=== PATIENT | male | born 1970 ===

== ENCOUNTER 2022-01-22 10:59 | Outpatient (REF) | payer OTHER, SELFPAY ==
[2022-01-22 14:52] LABS: Basophils Percent Auto 0.4 % (0-2); Eosinophils Absolute Auto 0.1 X10*3/uL (0.0-0.4); Hematocrit 37.5 % (42.0-52.0); Hemoglobin 11.5 g/dl (14.0-18.0); Imm Gran Abs Auto 0.02 X10*3/uL (0.00-0.03); Imm Gran Pct Auto 0.2 % (0.0-0.4); Lymphocytes Absolute Auto 3.8 X10*3/uL (1.2-4.9); Lymphocytes Percent Auto 45.8 % (20-40); MANUAL DIFF FLAG NO; Mean Corpuscular HGB Conc 30.7 g/dl (31.0-36.0); Mean Corpuscular Hemoglobin 24.2 pg (27.0-33.0); Mean Corpuscular Volume 78.8 fL (80.0-98.0); Mean Platelet Volume 10.6 fL (9.4-12.4); Monocytes Absolute Auto 0.5 X10*3/uL (0.1-1.2); Monocytes Percent Auto 5.8 % (2-11); Neutrophils Absolute Auto 3.9 x10*3/uL (2.0-8.3); Neutrophils Percent Auto 46.8 % (45-73); Platelet Count 282 X10*3/uL (160-400); Red Blood Count 4.76 X10*6/uL (4.60-5.80); Red Cell Distribution Width 20.5 % (11.0-16.0); White Blood Count 8.4 X10*3/uL (4.8-10.8)
[2022-01-22 15:10] LABS: Estimated Average Glucose 226 mg/dL; Hemoglobin A1c % 9.5 %
[2022-01-22 15:18] LABS: Alanine Aminotransferase 14 U/L (0-40); Albumin Level 4.4 g/dL (3.5-5.0); Alkaline Phosphatase 92 U/L (39-117); Anion Gap 15 (12-20); Aspartate Amino Transferase 14 U/L (5-37); Bilirubin Total 0.2 mg/dL (0.0-1.0); Blood Urea Nitrogen 11 mg/dL (9-16); Carbon Dioxide 28 mmol/L (22-29); Chloride 102 mmol/L (96-108); Cholesterol 128 mg/dL; Estimated Glomerular Filt Rate > 60; Glucose Fasting 159 mg/dL (60-99); HDL Cholesterol 42 mg/dL; LDL Cholesterol Calculated 69 mg/dl; Potassium 4.9 mmol/L (3.3-5.1); Sodium 140 mmol/L (135-145); Total Protein 7.6 g/dL (6.5-8.0); Triglycerides 89 mg/dL
[2022-01-22 15:38] LABS: Thyroid Stimulating Hormone 0.81 uIU/mL (0.32-4.0)
== END 2022-01-22 11:00 | disposition home or self-care (01) ==
LOC: HO.WFDLDS 10:59
PROVIDERS: Visit Provider Nurse Practitioner Family
DX: Z00.00 Encounter for general adult medical examination without abnormal findings (principal); D64.9 Anemia, unspecified
CPT/HCPCS: 36415; 80053; 80061; 83036; 84443; 85025

== ENCOUNTER 2022-02-11 12:42 | Outpatient (REF) | payer OTHER, SELFPAY ==
[2022-02-11 14:03] LABS: Immature Retic Fraction 16.9 % (2.3-13.4); Retic HGB Equivalent 34.1 pg (30.0-35.0); Reticulocytes Absolute 0.048 X10*6/uL (0.026-0.095)
[2022-02-11 15:02] LABS: Ferritin 10 ng/mL (20-250); Iron 203 mcg/dL (45-160); Percent Iron Saturation 53 % (15-50); Total Iron Binding Capacity 386 mcg/dL (228-428); Unsaturated Iron Binding 183 ug/dL
== END 2022-02-11 12:43 | disposition home or self-care (01) ==
LOC: HO.WFDLDS 12:42
PROVIDERS: Visit Provider Nurse Practitioner Family
DX: D64.9 Anemia, unspecified (principal)
CPT/HCPCS: 36415; 82728; 83540; 85045

== ENCOUNTER 2022-05-10 11:29 | Outpatient (REF) | payer OTHER, SELFPAY ==
[2022-05-10 14:24] LABS: Hematocrit 42.5 % (42.0-52.0); Hemoglobin 13.6 g/dl (14.0-18.0); Mean Corpuscular Hemoglobin 28.8 pg (27.0-33.0); Mean Corpuscular Volume 89.9 fL (80.0-98.0); Mean Platelet Volume 11.6 fL (9.4-12.4); Platelet Count 230 X10*3/uL (160-400); Red Blood Count 4.73 X10*6/uL (4.60-5.80); Red Cell Distribution Width 15.1 % (11.0-16.0); White Blood Count 7.4 X10*3/uL (4.8-10.8)
[2022-05-10 14:33] LABS: Estimated Average Glucose 200 mg/dL; Hemoglobin A1c % 8.6 %
[2022-05-10 14:49] LABS: Alanine Aminotransferase 17 U/L (0-40); Alkaline Phosphatase 126 U/L (39-117); Anion Gap 15 (12-20); Aspartate Amino Transferase 13 U/L (5-37); Bilirubin Total 0.2 mg/dL (0.0-1.0); Blood Urea Nitrogen 18 mg/dL (9-16); Calcium 10.3 mg/dL (8.4-10.2); Carbon Dioxide 29 mmol/L (22-29); Chloride 100 mmol/L (96-108); Estimated Glomerular Filt Rate 56; Glucose Fasting 260 mg/dL (60-99); Iron 23 mcg/dL (45-160); Percent Iron Saturation 8 % (15-50); Potassium 4.7 mmol/L (3.3-5.1); Sodium 139 mmol/L (135-145); Total Iron Binding Capacity 280 mcg/dL (228-428); Total Protein 8.1 g/dL (6.5-8.0); Unsaturated Iron Binding 257 ug/dL
[2022-05-10 15:11] LABS: Ferritin 109 ng/mL (20-250)
== END 2022-05-10 11:30 | disposition home or self-care (01) ==
LOC: HO.WFDLDS 11:29
PROVIDERS: Visit Provider Nurse Practitioner Family
DX: D64.9 Anemia, unspecified (principal); E11.9 Type 2 diabetes mellitus without complications
CPT/HCPCS: 36415; 80053; 82728; 83036; 83540; 85027

== ENCOUNTER → 2023-05-16 16:53 | Outpatient (AMB) | payer OTHER, SELFPAY ==
--- NOTE | 2023-05-16 17:00 | MHC.PC.OV ---
Vital Signs 05/16/23 17:01 Height 6 ft 4 in Weight 261 lb BMI 31.8 BP 132/78 Blood Pressure Location Lt brachial Position Sitting Pulse 86 Pulse Source Pulse Oximeter Pulse Oximetry (%) 96 Oxygen Delivery Method Room Air Intake Visit Reasons: follow up Intake Note: Patient is here for follow up on diabetes and high blood pressure. Patient is requesting iron prescription, states he is feeling the difference without it. Allergies No Known Allergies Allergy (Verified 05/16/23 17:33) Medication List - Last Reconciled 05/16/23 by Luz Hammond CNP ferrous sulfate 325 mg PO DAILY 30 days ketoconazole 2% 1 appl topical BID lisinopril 20 mg PO DAILY 30 days metformin 1,000 mg PO BID 30 days metoprolol tartrate 25 mg PO BID 30 days Tobacco use date assessed: 05/16/23 Dental Screening Dental Screen Date: 05/16/23 Did you have a dental visit in the last 12 months?: Yes Did you have a dental problem in the last 6 months where you did not have access to dental care?: No Was dental information given to patient?: Yes HPI HPI Comments History of Present Illness Details 52-year-old patient presents for HTN and DM follow-up Recent A1c in May 2022 is 8.6% His last office visit was in July 2022 He notes that he has been taking Metformin 1000mg in the morning instead of prescribed 1000mg twice daily. He admits to taking Lisinopril and Metoprolol as prescribed. He has not taken Ferrous sulfate for the past several months He admits to consuming significant amount of carbs, including rice and bread. He denies formal exercise No acute symptoms at this time He notes that does not recall the last time he had diabetic eye exam [facility] Medical History Anemia Hypertension DM type 2 (diabetes mellitus, type 2) Surgical History No pertinent past surgical history Family History Mother Diabetes Hypertension Hyperlipidemia No family history of mental disorder Father Diabetes Hypertension Hyperlipidemia No family history of mental disorder Social History Housing: Apartment Patient Tobacco Use Status: Current everyday Tobacco user Tobacco use type: Cigarette Cigarettes Per Day: 5 e-Cigarette/Vaping Use: Never Used Current occupational status: employed and unemployed Cognitive needs: No Hearing needs: No Vision needs: No Questionnaire PHQ-9 Over the last 2 weeks, how often have you been bothered by any of the following problems? 1. Little interest or pleasure in doing things: not at all 2. Feeling down, depressed, or hopeless: not at all 3. Trouble falling or staying asleep, or sleeping too much: not at all 4. Feeling tired or having little energy: not at all 5. Poor appetite or overeating: not at all 6. Feeling bad about yourself - or that you are a failure or have let yourself or your family down: not at all 7. Trouble concentrating on things, such as reading the newspaper or watching television: not at all 8. Moving or speaking so slowly that other people could have noticed. Or the opposite - being so fidgety or restless that you have been moving around a lot more than usual: not at all 9. Thoughts that you would be better off or of hurting yourself in some way: not at all Total score: 0 Depression Screening Interpretation: Negative Depression Screening Done: Yes Source: Developed by Drs. Abner Delgado, Sunita Thompson, Alan Biggs and colleagues, with an educational aurelia from [employer]. Thrive Questionnaire Date Thrive assessed: 05/16/23 I am a: Patient What is your living situation today?: I have a steady place to live Within the past 12 months, did the food you bought not last and you didn't have the money to get more?: Never true Within the past 12 months, did you worry whether your food would run out before you got money to buy more?: Never true Do you have trouble paying for medicines?: No Do you have trouble getting transportation to medical appointments?: No Do you have trouble paying your heating and electricity bill?: No Do you have trouble taking care of your child, family member or friend?: No Do you have trouble with day-to-day activities such as bathing, preparing meals, shopping, managing finances, etc.?: No Are you currently unemployed and looking for a job?: No Are you interested in more education?: No THRIVE Score: 0 AUDIT C Alcohol Use Questionnaire (AUDIT-C) 1. How often do you have a drink containing alcohol?: Never 3. How often do you have six or more drinks on one occasion?: Never Total Score: 0 AMBIKA-7 AMB Questionnaire AMBIKA-7 Date AMBIKA - 7 assessed: 05/16/23 Feeling nervous, anxious, or on edge: 1 = Several days Not being able to stop or control worryin = Several days Worrying too much about different things: 1 = Several days Trouble relaxin = Not at all Being so restless that it is hard to sit still: 0 = Not at all Becoming easily annoyed or irritable: 0 = Not at all Feeling afraid as if something awful might happen: 0 = Not at all Total AMBIKA-7 score (0-4 normal; 5-9 mild; 10-14 moderate; 15-21 severe): 3 Source: Developed by Drs. Abner Delgado, Sunita Thompson, Alan Biggs and colleagues, with an educational aurelia from [employer]. Review of Systems Const Details: Const Denies chills, Denies fatigue, Denies fever(s), Denies headache(s) and Denies weakness ENT Denies dizziness and Denies headache(s) Card Denies chest pain, Denies lightheadedness, Denies dyspnea and Denies other (Palpitations) Resp Denies cough, Denies dyspnea, Denies wheezing and Denies other ( shortness of breath) GI Denies abdominal pain, Denies melena, Denies hematochezia, Denies change in bowel habits, Denies dyspepsia and Denies nausea Denies hematuria and Denies dysuria Musc Denies abnormal gait, Denies myalgias, Denies arthralgias, Denies numbness and Denies tingling Skin/Breast Denies rash, Denies unusual bruising and Denies wounds Neuro Denies abnormal gait, Denies dizziness, Denies headache(s), Denies memory loss, Denies numbness, Denies Sensory deficit (Neuro), Denies tingling and Denies weakness Psych Denies anxiety, Denies depression, Denies memory loss Endo Denies cold intolerance, Denies fatigue, Denies heat intolerance, Denies polydipsia and Denies polyuria Aller/Immun Denies wheezing Physical exam (Primary Care) BMI result Body Mass Index 31.8 Tobacco/Smoking Status: Tobacco use Status Tobacco use date assessed 05/16/23 05/16/23 17:05 Patient Tobacco Use Status Current everyday Tobacco 05/16/23 17:01 Tobacco use type Cigarette 05/16/23 17:01 e-Cigarette/Vaping Use Never Used 05/16/23 17:01 Depression Screening Interpretation: Negative Thrive Assessment: Date of Thrive Assessment Date Thrive assessed 05/14/22 05/16/23 17:01 Const Other: General: no acute distress and well developed Nutritional Appearance: well nourished Orientation/consciousness: patient oriented x3 HENMT Head: Yes normocephalic and Yes atraumatic Eyes General: appearance normal, both eyes and all related structures Pupils: Equal, round and reactive pupils present EOM: EOMs intact bilaterally Resp Effort & Inspection: normal respiratory effort Auscultation: clear to auscultation bilaterally Cardio Rate: regular rate Rhythm: regular rhythm Heart sounds: S1 normal heart sound present, S2 normal heart sound present, no gallops, no murmurs and no rubs GI Palpation (GI): No Abdominal aortic bruit present, Soft to palpation, nontender, No hepatosplenomegaly present and No Rebound tenderness present Auscultation: normal bowel sounds General: Yes no CVA tenderness Back/Spine/Pelvis Back: no CVA tenderness Cervical Spine: cervical ROM normal and No Cervical spine tenderness Thoracic/Lumbar Spine: thoraco-lumbar ROM normal, No pain with thoraco-lumbar ROM, No thoracic spinal tenderness and No lumbar spinal tenderness Extrem General: Yes normal to inspection, No edema and No calf tenderness Skin General: warm and dry. Normal skin color. Normal skin turgor Lesions: no lesions Rashes: no rashes Trauma: no lacerations or abrasions Wounds: no wounds Nails: normal Neuro General: patient oriented x3, gait normal and no focal neuro deficit Cranial nerves: Yes Equal, round and reactive pupils present Cognition (Neuro): normal cognition Gait exam (Neuro): Normal gait present Sensory Exam: No Sensory deficit (Neuro) Psych Appearance: grossly normal Affect: normal affect Attitude: cooperative Thought process: Normal thought process present Results AMB Hemoglobin A1c AMB Hemoglobin A1c 13.4 % Last Edit by Gauri Martin CMA on 05/16/23 17:26 Assessment and Plan Assessment & Plan (1) Hypertension: Code(s): I10 - Essential (primary) hypertension Plan: Blood pressure is 132/78, slightly above goal of less than 130/80 Continue to take lisinopril as prescribed Low-sodium diet and routine exercise encouraged Will continue to monitor Follow-up in 1 month for an extended physical exam and diabetes Return sooner with symptoms or concerns Verbalized understanding and agreed with treatment plan (2) DM type 2 (diabetes mellitus, type 2): Code(s): E11.9 - Type 2 diabetes mellitus without complications Plan: His A1c today is 13.4%, above goal of less than 7.0%. Previous A1c was 8.6% Advised to take metformin 1000 mg twice daily ADA diet and routine exercise encouraged. Advised to limit carbs such as rice, pasta, bread, potatoes Referred to endocrinology, Ophthalmology, and the diabetic nurse educator Diabetic supplies ordered. Advised to check blood glucose 3 times daily, record readings, and bring to next appointment Advised to get labs done before his next visit Follow-up in 1 month or return sooner with symptoms or concerns Verbalized understanding and agreed with treatment plan Orders: Orders Microalbumin, Random (w Creat) Today E11.9 - Type 2 diabetes mellitus without complications AMB Hemoglobin A1c Today Z13.9 - Encounter for screening, unspecified Referrals Endocrinology Referral E11.9 - Type 2 diabetes mellitus without complications Nurse Navigator Referral E11.9 - Type 2 diabetes mellitus without complications Ophthalmology Referral E11.9 - Type 2 diabetes mellitus without complications Medications: New blood sugar diagnostic (FreeStyle Lite Strips) As directed TID 100 ea 4RF blood-glucose meter (FreeStyle Lite Meter kit) As directed 1 ea 0RF diabetes lancets (FreeStyle Lancets) As directed 100 ea 4RF Refilled ferrous sulfate 325 mg PO DAILY 30 days 30 tabs 2RF Coding Level of Care Code Est Pt Level 4 (91480) Diagnoses Hypertension I10 DM type 2 (diabetes mellitus, type 2) E11.9
[2023-05-16 17:01] VITALS: BP 132/78; PULSE 86; O2SAT 96; BMI 31.8
== END ==
PROVIDERS: PCP Nurse Practitioner Family; Visit Provider Nurse Practitioner Family
DX: I10 Essential (primary) hypertension (principal); E11.9 Type 2 diabetes mellitus without complications
CPT/HCPCS: 83036; 99214

== ENCOUNTER 2023-05-18 09:09 | Outpatient (REF) | payer OTHER, SELFPAY ==
[2023-05-18 11:44] LABS: Hematocrit 45.3 % (42.0-52.0); Hemoglobin 15.3 g/dl (14.0-18.0); Mean Corpuscular HGB Conc 33.8 g/dl (31.0-36.0); Mean Corpuscular Hemoglobin 31.9 pg (27.0-33.0); Mean Corpuscular Volume 94.4 fL (80.0-98.0); Mean Platelet Volume 10.9 fL (9.4-12.4); Platelet Count 226 X10*3/uL (160-400); Red Cell Distribution Width 12.9 % (11.0-16.0); White Blood Count 8.8 X10*3/uL (4.8-10.8)
[2023-05-18 12:30] LABS: Creatinine Urine 162.82 mg/dL; Microalbum/Creatinine Ratio Ur 6.1 ug/mg cr (<30)
[2023-05-18 12:45] LABS: Ferritin 84 ng/mL (20-250); Iron 83 mcg/dL (45-160); Percent Iron Saturation 28 % (15-50); Total Iron Binding Capacity 298 mcg/dL (228-428); Unsaturated Iron Binding 215 ug/dL
== END 2023-05-18 09:10 | disposition home or self-care (01) ==
LOC: HO.WFDLDS 09:09
PROVIDERS: Visit Provider Nurse Practitioner Family
DX: D50.9 Iron deficiency anemia, unspecified (principal); E11.9 Type 2 diabetes mellitus without complications
CPT/HCPCS: 36415; 82043; 82570; 82728; 83540; 85027

== ENCOUNTER 2023-06-13 15:59 | Outpatient (AMB) | payer OTHER, SELFPAY ==
[2023-06-13 16:01] VITALS: BP 146/86; PULSE 81; RESP 13; TEMP 36.1; O2SAT 97; BMI 31.1
--- NOTE | 2023-06-13 16:01 | MHC.PC.OV ---
Vital Signs 06/13/23 16:01 06/13/23 16:23 Height 6 ft 4 in Weight 255 lb 4 oz BMI 31.1 BP 146/86 H 140/80 H Blood Pressure Location Rt brachial Lt brachial Position Sitting Sitting Respiration 13 Pulse 81 Pulse Source Pulse Oximeter Temp 97 F Temp Source Temporal Artery Scan Pulse Oximetry (%) 97 Oxygen Delivery Method Room Air Intake Visit Reasons: CPE W/ F/U DM Associate Professor Of Literacy Required: No Accompanied by: Self / Same As Patient Allergies No Known Allergies Allergy (Verified 06/13/23 16:20) Medication List - Last Reconciled 06/13/23 by Luz Hammond CNP blood sugar diagnostic (FreeStyle Lite Strips) As directed TID blood-glucose meter (FreeStyle Lite Meter kit) As directed ferrous sulfate 325 mg PO DAILY 30 days ketoconazole 2% 1 appl topical BID lancets (FreeStyle Lancets) As directed lisinopril 20 mg PO DAILY 30 days metformin 1,000 mg PO BID 30 days metoprolol tartrate 25 mg PO BID 30 days Tobacco use date assessed: 05/16/23 Dental Screening Dental Screen Date: 06/13/23 Did you have a dental visit in the last 12 months?: Yes Did you have a dental problem in the last 6 months where you did not have access to dental care?: No Was dental information given to patient?: Patient has dentist HPI HPI Comments History of Present Illness Details 52-year-old male presents for an extended physical exam and diabetes follow-up His A1c was elevated at his previous visit last month almost a month ago, 13.4 He admits to taking his medications as prescribed without adverse reactions He notes that he has been making healthy dietary changes by avoiding high sugar content foods and carbs. He has not been exercising He offers no complaints and denies acute symptoms at this time He notes that he has never had a colonoscopy done He notes that he has not been vaccinated for shingles or the flu. He states, I don't take flu shots He smokes 10 cigarettes daily. He has been smoking for 10 years [facility] Medical History Anemia Hypertension DM type 2 (diabetes mellitus, type 2) Surgical History No pertinent past surgical history Family History (Updated 06/13/23 @ 16:08 by Katelyn Carrasco MA) Mother Diabetes Hypertension Hyperlipidemia No family history of mental disorder Father Diabetes Hypertension Hyperlipidemia No family history of mental disorder Social History Housing: House Patient Tobacco Use Status: Current everyday Tobacco user Tobacco use type: Cigarette Cigarette Packs Per Day: 0.5 Cigarettes Per Day: 10 Years Smoked: 10 e-Cigarette/Vaping Use: Never Used Current occupational status: employed 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 1. Little interest or pleasure in doing things: not at all 2. Feeling down, depressed, or hopeless: not at all 3. Trouble falling or staying asleep, or sleeping too much: several days 4. Feeling tired or having little energy: not at all 5. Poor appetite or overeating: not at all 6. Feeling bad about yourself - or that you are a failure or have let yourself or your family down: not at all 7. Trouble concentrating on things, such as reading the newspaper or watching television: not at all 8. Moving or speaking so slowly that other people could have noticed. Or the opposite - being so fidgety or restless that you have been moving around a lot more than usual: not at all 9. Thoughts that you would be better off or of hurting yourself in some way: not at all Total score: 1 Depression Screening Interpretation: Negative Depression Screening Done: Yes 30278 - PHQ-9 Billing: Yes Source: Developed by Drs. Abner Delgado, Sunita Thompson, Alan Biggs and colleagues, with an educational aurelia from [employer]. Thrive Questionnaire Date Thrive assessed: 05/16/23 AUDIT C Alcohol Use Questionnaire (AUDIT-C) 1. How often do you have a drink containing alcohol?: Never 3. How often do you have six or more drinks on one occasion?: Never Total Score: 0 AMBIKA-7 AMB Questionnaire AMBIKA-7 Date AMBIKA - 7 assessed: 06/13/23 Feeling nervous, anxious, or on edge: 1 = Several days Not being able to stop or control worryin = Several days Worrying too much about different things: 1 = Several days Trouble relaxin = Not at all Being so restless that it is hard to sit still: 0 = Not at all Becoming easily annoyed or irritable: 0 = Not at all Feeling afraid as if something awful might happen: 0 = Not at all Total AMBIKA-7 score (0-4 normal; 5-9 mild; 10-14 moderate; 15-21 severe): 3 Source: Developed by Drs. Abner Delgado, Sunita Thompson, Alan Biggs and colleagues, with an educational aurelia from [employer]. Review of Systems Const Details: Denies chills, Denies fatigue, Denies fever(s), Denies headache(s) and Denies weakness HEENT Denies change in vision, Denies dizziness, Denies headache(s), Denies hearing loss, Denies nasal congestion, Denies sinus pain, Denies sinus pressure and Denies sore throat Card Denies chest pain, Denies lightheadedness, Denies dyspnea and Denies other (palpitations) Resp Denies cough, Denies dyspnea and Denies wheezing GI Denies abdominal pain, Denies melena, Denies hematochezia, Denies change in bowel habits, Denies dyspepsia and Denies nausea Denies hematuria and Denies dysuria Musc Denies abnormal gait, Denies myalgias, Denies arthralgias, Denies numbness and Denies tingling Skin/Breast Denies rash, Denies unusual bruising and Denies wounds Neuro Denies abnormal gait, Denies dizziness, Denies headache(s), Denies memory loss, Denies numbness, Denies Sensory deficit (Neuro), Denies tingling and Denies weakness Psych Denies anxiety, Denies depression and Denies memory loss Endo Denies cold intolerance, Denies fatigue, Denies heat intolerance, Denies polydipsia and Denies polyuria Bennie/Lymph Denies easy bleeding and Denies easy bruising Aller/Immun Denies wheezing Physical exam (Primary Care) Vital Signs: Last Vital Signs Temp 97 F 06/13/23 16:01 Pulse 81 06/13/23 16:01 Resp 13 06/13/23 16:01 BP 146/86 H 06/13/23 16:01 Pulse Ox 97 06/13/23 16:01 Oxygen Delivery Method Room Air 06/13/23 16:01 BMI result Body Mass Index 31.1 Tobacco/Smoking Status: Tobacco use Status Tobacco use date assessed 05/16/23 06/13/23 16:05 Patient Tobacco Use Status Current everyday Tobacco 06/13/23 16:05 Tobacco use type Cigarette 06/13/23 16:05 e-Cigarette/Vaping Use Never Used 06/13/23 16:05 PHQ-9: PHQ-9 Score PHQ-9: Total score 1 06/13/23 16:11 Depression Screening Interpretation: Negative Thrive Assessment: Date of Thrive Assessment Date Thrive assessed 05/16/23 06/13/23 16:05 Const Other: General: no acute distress, well developed, alert and awake Nutritional Appearance: well nourished Orientation/consciousness: patient oriented x3 HENMT Head: Yes normocephalic and Yes atraumatic Ears: hearing grossly normal bilaterally and TM's normal bilaterally General nose exam: Normal external nose present and Normal nares present Mouth: Normal oral and palatal mucosa present and moist mucous membranes Teeth and gingiva: dentition normal Throat: Yes oropharynx normal Eyes Pupils: Equal, round and reactive pupils present and Pupil accommodation reflex normal EOM: EOMs intact bilaterally Neck Neck: Yes normal visual inspection, Yes no lymphadenopathy and Yes trachea midline Thyroid: Thyroid normal Carotids: no bruits Lymphatic: no lymphadenopathy noted Chest Chest palpation & inspection: normal inspection of the chest Resp Effort & Inspection: normal respiratory effort Auscultation: clear to auscultation bilaterally Cardio Rate: regular rate Rhythm: regular rhythm Heart sounds: S1 normal heart sound present, S2 normal heart sound present, no gallops, no murmurs and no rubs Bruits: no abdominal aortic bruits and no carotid bruits GI Palpation (GI): No Abdominal aortic bruit present, Soft to palpation, nontender, No hepatosplenomegaly present and No Rebound tenderness present Auscultation: normal bowel sounds General: Yes no CVA tenderness Back/Spine/Pelvis Back: no CVA tenderness Cervical Spine: cervical ROM normal and No Cervical spine tenderness Thoracic/Lumbar Spine: thoraco-lumbar ROM normal, No pain with thoraco-lumbar ROM, No thoracic spinal tenderness and No lumbar spinal tenderness Skin General: warm and dry. Normal skin color. Normal skin turgor Lesions: no lesions Rashes: no rashes Trauma: no lacerations or abrasions Wounds: no wounds Nails: normal Neuro General: patient oriented x3, gait normal and CN's II-XI intact bilaterally Cranial nerves: Yes Equal, round and reactive pupils present Cognition (Neuro): normal cognition Gait exam (Neuro): Normal gait present Motor exam (neuro): 5/5 motor strength present throughout Sensory Exam: No Sensory deficit (Neuro) Deep tendon reflexes (DTR's): Right patellar reflex intensity grade: 2+ and Left patellar reflex intensity grade: 2+ Extrem General: Yes normal to inspection, No edema and No calf tenderness Psych Appearance: grossly normal Affect: normal affect Attitude: cooperative Thought process: Normal thought process present Assessment and Plan Assessment & Plan (1) Normal physical examination, routine: Code(s): Z00.00 - Encounter for general adult medical examination without abnormal findings Plan: No significant physical restrictions or limitations noted Continue current treatment regimen Healthy diet and routine exercise encouraged Will recheck CBC for iron deficiency anemia. Will check BMP for kidney function. Will recheck lipid panel. Will also check PSA levels Follow-up in 2 months or return sooner with symptoms or concerns Verbalized understanding and agreed with treatment plan (2) Colon cancer screening: Code(s): Z12.11 - Encounter for screening for malignant neoplasm of colon Plan: He has never had a colonoscopy Referred to [facility] [place] [place] gastroenterology for colonoscopy (3) Vaccine counseling: Code(s): Z71.85 - Encounter for immunization safety counseling Plan: He has never been vaccinated for shingles. He declines the influenza vaccine Instructed on importance of vaccination and encouraged to get vaccinated for shingles and influenza (4) Smoking: Code(s): F17.200 - Nicotine dependence, unspecified, uncomplicated Plan: He smokes 10 cigarettes daily. He has been smoking for 10 years Instructed on health risks and complications of cigarette smoking Smoking cessation encouraged He may inform his PCP if he needs treatment for smoking cessation (5) Laboratory tests ordered as part of a complete physical exam (CPE): Code(s): Z00.00 - Encounter for general adult medical examination without abnormal findings Plan: Fasting labs ordered in preparation of a complete physical exam. Advised to fast for at least 10 hours before getting labs drawn. May drink water Verbalized understanding and agreed with treatment plan. Orders: Orders TSH reflex Free T4 Today Z00.00 - Encounter for general adult medical examination without abnormal findings Lipid Panel Today Z00.00 - Encounter for general adult medical examination without abnormal findings PSA, Ultra Sensitive Today Z00.00 - Encounter for general adult medical examination without abnormal findings Basic Metabolic Panel Today Z00.00 - Encounter for general adult medical examination without abnormal findings Complete Blood Count no Diff Today D50.9 - Iron deficiency anemia, unspecified, Z00.00 - Encounter for general adult medical examination without abnormal findings Medications: Refilled lisinopril 20 mg PO DAILY 30 days 30 tabs 3RF metoprolol tartrate 25 mg PO BID 30 days 60 tabs 3RF Coding Level of Care Code Est Pt Prev Care 40-64y(96994) Diagnoses Normal physical examination, routine Z00.00 Colon cancer screening Z12.11 Vaccine counseling Z71.85 Smoking F17.200 Laboratory tests ordered as part of a complete physical exam (CPE) Z00.00
[2023-06-13 16:23] VITALS: BP 140/80
== END 2023-06-13 16:37 | disposition home or self-care (01) ==
PROVIDERS: PCP Nurse Practitioner Family; Visit Provider Nurse Practitioner Family
DX: Z00.00 Encounter for general adult medical examination without abnormal findings (principal); Z12.11 Encounter for screening for malignant neoplasm of colon; Z71.85 Encounter for immunization safety counseling; F17.200 Nicotine dependence, unspecified, uncomplicated
CPT/HCPCS: 99396

== ENCOUNTER 2023-08-03 11:05 | Outpatient (REF) | payer OTHER, SELFPAY ==
[2023-08-03 14:40] LABS: Hematocrit 45.1 % (42.0-52.0); Hemoglobin 15.3 g/dl (14.0-18.0); Mean Corpuscular HGB Conc 33.9 g/dl (31.0-36.0); Mean Corpuscular Hemoglobin 32.6 pg (27.0-33.0); Mean Corpuscular Volume 96.2 fL (80.0-98.0); Mean Platelet Volume 10.6 fL (9.4-12.4); Platelet Count 258 X10*3/uL (160-400); Red Blood Count 4.69 X10*6/uL (4.60-5.80); Red Cell Distribution Width 13.6 % (11.0-16.0); White Blood Count 9.8 X10*3/uL (4.8-10.8)
[2023-08-03 15:20] LABS: Anion Gap 14 (12-20); Blood Urea Nitrogen 16 mg/dL (9-16); Calcium 9.9 mg/dL (8.4-10.2); Carbon Dioxide 25 mmol/L (22-29); Chloride 106 mmol/L (96-108); Estimated Glomerular Filt Rate > 60; Glucose Random 156 mg/dL (60-115); Sodium 141 mmol/L (135-145)
[2023-08-03 15:51] LABS: TSH reflex Free T4 0.58 uIU/mL (0.32-4.0)
[2023-08-09 22:13] LABS: PSA, Ultra Sensitive 1.39 ng/mL
== END 2023-08-03 11:06 | disposition home or self-care (01) ==
LOC: HO.WFDLDS 11:05
PROVIDERS: Visit Provider Nurse Practitioner Family
DX: Z00.00 Encounter for general adult medical examination without abnormal findings (principal); D50.9 Iron deficiency anemia, unspecified
CPT/HCPCS: 36415; 80048; 84153; 84443; 85027

== ENCOUNTER 2023-08-15 15:55 | Outpatient (AMB) | payer OTHER, SELFPAY ==
--- NOTE | 2023-08-15 15:58 | MHC.PC.OV ---
Vital Signs 08/15/23 15:59 Height 6 ft 4 in Weight 245 lb BMI 29.8 BP 116/74 Blood Pressure Location Rt brachial Position Sitting Respiration 14 Pulse 93 Pulse Source Pulse Oximeter Temp 98.4 F Temp Source Oral Pulse Oximetry (%) 96 Oxygen Delivery Method Room Air Intake Visit Reasons: DM, HTN Intake Note: Patient is here to follow up on DM, HTN. Sports Marketing Coordinator Required: No Regional Vice President Surgical Sales: Not Required per policy Accompanied by: Self / Same As Patient Allergies No Known Allergies Allergy (Verified 08/15/23 16:11) Medication List - Last Reviewed 08/15/23 by Dalila Kinney CMA blood sugar diagnostic (FreeStyle Lite Strips) As directed TID blood-glucose meter (FreeStyle Lite Meter kit) As directed empagliflozin (Jardiance) 10 mg PO DAILY lancets (FreeStyle Lancets) As directed lisinopril 20 mg PO DAILY 30 days metformin 1,000 mg PO BID 30 days metoprolol tartrate 25 mg PO BID 30 days Tobacco use date assessed: 08/15/23 Dental Screening Dental Screen Date: 06/13/23 HPI HPI Comments History of Present Illness Details 52-year-old male presents for hypertension and diabetes follow-up He admits to taking his medications as prescribed without adverse reactions He notes that he established with [place] [facility] a few weeks ago and was prescribed Jardiance 10 mg daily. He has a follow-up appointment in a couple of weeks He offers no complaints and denies acute symptoms at this time He notes that he was contacted by [facility] for an eye exam. However, he was not feeling well and did not go to the appointment. He has not been contacted again. [facility] Medical History Anemia Hypertension DM type 2 (diabetes mellitus, type 2) Surgical History No pertinent past surgical history Family History Mother Diabetes Hypertension Hyperlipidemia No family history of mental disorder Father Diabetes Hypertension Hyperlipidemia No family history of mental disorder Social History Housing: House Patient Tobacco Use Status: Current everyday Tobacco user Tobacco use type: Cigarette Cigarette Packs Per Day: 0.5 Cigarettes Per Day: 10 Years Smoked: 10 e-Cigarette/Vaping Use: Never Used Second Hand Smoke Exposure: Yes service: No Current occupational status: employed 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 Abner Delgado, Sunita Thompson, Alan Biggs and colleagues, with an educational aurelia from [employer] Review of Systems Const Details: Const Denies chills, Denies fatigue, Denies fever(s), Denies headache(s) and Denies weakness ENT Denies dizziness and Denies headache(s) Card Denies chest pain, Denies lightheadedness, Denies dyspnea and Denies other (Palpitations) Resp Denies cough, Denies dyspnea, Denies wheezing and Denies other ( shortness of breath) GI Denies abdominal pain, Denies melena, Denies hematochezia, Denies change in bowel habits, Denies dyspepsia and Denies nausea Denies hematuria and Denies dysuria Musc Denies abnormal gait, Denies myalgias, Denies arthralgias, Denies numbness and Denies tingling Skin/Breast Denies rash, Denies unusual bruising and Denies wounds Neuro Denies abnormal gait, Denies dizziness, Denies headache(s), Denies memory loss, Denies numbness, Denies Sensory deficit (Neuro), Denies tingling and Denies weakness Psych Denies anxiety, Denies depression, Denies memory loss Endo Denies cold intolerance, Denies fatigue, Denies heat intolerance, Denies polydipsia and Denies polyuria Aller/Immun Denies wheezing Physical exam (Primary Care) Vital Signs: Last Vital Signs Temp 98.4 F 08/15/23 15:59 Pulse 93 08/15/23 15:59 Resp 14 08/15/23 15:59 BP 116/74 08/15/23 15:59 Pulse Ox 96 08/15/23 15:59 Oxygen Delivery Method Room Air 08/15/23 15:59 BMI result Body Mass Index 29.8 Tobacco/Smoking Status: Tobacco use Status Tobacco use date assessed 08/15/23 08/15/23 16:02 Patient Tobacco Use Status Current everyday Tobacco 08/15/23 16:02 Tobacco use type Cigarette 08/15/23 16:02 e-Cigarette/Vaping Use Never Used 08/15/23 16:02 Thrive Assessment: Date of Thrive Assessment Date Thrive assessed 05/16/23 08/15/23 16:02 Const Other: General: no acute distress and well developed Nutritional Appearance: well nourished Orientation/consciousness: patient oriented x3 HENMT Head: Yes normocephalic and Yes atraumatic Eyes General: appearance normal, both eyes and all related structures Pupils: Equal, round and reactive pupils present EOM: EOMs intact bilaterally Resp Effort & Inspection: normal respiratory effort Auscultation: clear to auscultation bilaterally Cardio Rate: regular rate Rhythm: regular rhythm Heart sounds: S1 normal heart sound present, S2 normal heart sound present, no gallops, no murmurs and no rubs GI Palpation (GI): No Abdominal aortic bruit present, Soft to palpation, nontender, No hepatosplenomegaly present and No Rebound tenderness present Auscultation: normal bowel sounds General: Yes no CVA tenderness Back/Spine/Pelvis Back: no CVA tenderness Cervical Spine: cervical ROM normal and No Cervical spine tenderness Thoracic/Lumbar Spine: thoraco-lumbar ROM normal, No pain with thoraco-lumbar ROM, No thoracic spinal tenderness and No lumbar spinal tenderness Extrem General: Yes normal to inspection, No edema and No calf tenderness Skin General: warm and dry. Normal skin color. Normal skin turgor Neuro General: patient oriented x3, gait normal and no focal neuro deficit Cranial nerves: Yes Equal, round and reactive pupils present Cognition (Neuro): normal cognition Gait exam (Neuro): Normal gait present Sensory Exam: No Sensory deficit (Neuro) Psych Appearance: grossly normal Affect: normal affect Attitude: cooperative Thought process: Normal thought process present Results AMB Hemoglobin A1c AMB Hemoglobin A1c 7.1 % Last Edit by Dalila Kinney CMA on 08/15/23 16:13 Results Reviewed Results Reviewed: Laboratory Last Values Hgb A1c (Clinic) 7.1 % (4.0-6.0) H 08/15/23 15:58 Assessment and Plan Assessment & Plan (1) Hypertension: Code(s): I10 - Essential (primary) hypertension Plan: Blood pressure is 116/74, within goal of less than 130/80 Continue current treatment regimen Low-sodium diet encouraged Follow-up in 3 months or return sooner with symptoms or concerns Verbalized understanding and agreed with treatment plan (2) DM type 2 (diabetes mellitus, type 2): Code(s): E11.9 - Type 2 diabetes mellitus without complications Plan: His A1c today is 7.1%, slightly above goal of less than 7.0%. Previous A1 was 13.4% Continue to take Jardiance and metformin 1000 mg twice daily ADA diet and routine exercise encouraged Will request endocrinology record Advised to contact [facility] to establish care He has not had lipid panel blood work done since 2021. Advised to fast for 10-12 hours, may drink water only, and get blood work done before his next visit Follow-up in 3 months Verbalized understanding and agreed with treatment plan (3) Iron deficiency anemia: Code(s): D50.9 - Iron deficiency anemia, unspecified Plan: H&H have been trending normal; recent iron profile and ferritin level is normal Will discontinue ferrous sulfate at this time Will recheck CBC, iron profile and ferritin levels in 3 months Verbalized understanding and agreed with the plan Orders: Orders AMB Hemoglobin A1c Today E11.9 - Type 2 diabetes mellitus without complications IRON PROFILE 3 Months D50.9 - Iron deficiency anemia, unspecified Complete Blood Count no Diff 3 Months D50.9 - Iron deficiency anemia, unspecified Ferritin 3 Months D50.9 - Iron deficiency anemia, unspecified Medications: Discontinued ferrous sulfate Discontinued Reason: Doctor's Order 325 mg PO DAILY 30 days 30 tabs 2RF Coding Level of Care Code Est Pt Level 4 (69219) Complex EM visit Add On G2211 Diagnoses Hypertension I10 DM type 2 (diabetes mellitus, type 2) E11.9 Iron deficiency anemia D50.9
[2023-08-15 15:59] VITALS: BP 116/74; PULSE 93; RESP 14; TEMP 36.9; O2SAT 96; BMI 29.8
== END 2023-08-15 16:32 | disposition home or self-care (01) ==
PROVIDERS: PCP Nurse Practitioner Family; Visit Provider Nurse Practitioner Family
DX: I10 Essential (primary) hypertension (principal); E11.9 Type 2 diabetes mellitus without complications; D50.9 Iron deficiency anemia, unspecified
CPT/HCPCS: 83036; 99214; G2211

== ENCOUNTER 2024-02-25 07:17 | Outpatient (REF) | payer OTHER, SELFPAY ==
[2024-02-25 07:49] LABS: Hematocrit 47.3 % (42.0-52.0); Mean Corpuscular HGB Conc 33.8 g/dl (31.0-36.0); Mean Corpuscular Hemoglobin 31.3 pg (27.0-33.0); Mean Corpuscular Volume 92.6 fL (80.0-98.0); Mean Platelet Volume 10.4 fL (9.4-12.4); Platelet Count 216 X10*3/uL (160-400); Red Blood Count 5.11 X10*6/uL (4.60-5.80); Red Cell Distribution Width 13.6 % (11.0-16.0); White Blood Count 6.5 X10*3/uL (4.8-10.8)
[2024-02-25 08:36] LABS: Cholesterol 142 mg/dL (<200); HDL Cholesterol 41 mg/dL (>40); Iron 92 mcg/dL (45-160); LDL Cholesterol Calculated 84 mg/dL (<100); Percent Iron Saturation 32 % (15-50); Total Iron Binding Capacity 290 mcg/dL (228-428); Triglycerides 88 mg/dL (<150); Unsaturated Iron Binding 198 ug/dL
[2024-02-25 09:05] LABS: Ferritin 92 ng/mL (20-250)
== END 2024-02-25 07:18 | disposition home or self-care (01) ==
LOC: HO.LAB 07:17
PROVIDERS: PCP Nurse Practitioner Family; Visit Provider Nurse Practitioner Family
DX: Z00.00 Encounter for general adult medical examination without abnormal findings (principal); D50.9 Iron deficiency anemia, unspecified
CPT/HCPCS: 36415; 80061; 82728; 83540; 85027

== ENCOUNTER 2024-02-27 14:48 | Outpatient (AMB) | payer OTHER, SELFPAY ==
--- NOTE | 2024-02-27 15:07 | MHC.PC.OV ---
Vital Signs 02/27/24 15:13 Height 6 ft 4 in Weight 242 lb 8 oz BMI 29.5 BP 126/78 Blood Pressure Location Rt brachial Position Sitting Respiration 16 Pulse 80 Pulse Source Pulse Oximeter Temp 97.5 F Temp Source Temporal Artery Scan Pulse Oximetry (%) 97 Oxygen Delivery Method Room Air Intake Visit Reasons: 3 mos DM, HTN Intake Note: patient here for 3 month follow up on DM and HTN Athletic Shoe Designer Required: No Allergies No Known Allergies Allergy (Verified 02/27/24 15:11) Tobacco use date assessed: 02/27/24 Dental Screening Dental Screen Date: 02/27/24 Did you have a dental visit in the last 12 months?: No Did you have a dental problem in the last 6 months where you did not have access to dental care?: No Was dental information given to patient?: Yes HPI HPI Comments History of Present Illness Details The patient is a 53-year-old male presenting with a follow-up for Type 2 Diabetes Mellitus and Essential Hypertension. He has been previously diagnosed with Type 2 Diabetes Mellitus and managed with Jardiance 10 mg daily and metformin 1000 mg twice daily. Despite adherence to this regimen, his Hemoglobin A1c has remained at 7.1%, consistent with readings from August, indicating no change in glycemic control. The patient reports difficulty in adhering to dietary modifications, specifically reducing carbohydrate intake such as rice, pasta, and bread. He exercises three times per week, largely through walking, due to work constraints. 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 The patient?s Essential Hypertension is managed with lisinopril 20 mg daily and metoprolol 25 mg twice daily. His blood pressure was recorded today at 126/78 mmHg, which falls within the target range of less than 130/80 mmHg. No complications have been mentioned in relation to his hypertension. He has a history of iron deficiency anemia, with past treatment through iron supplementation. Recent blood tests indicate no current anemia, with normal iron profile and ferritin levels. Results - Labs: Hemoglobin A1c 7.1%, Iron studies and CBC within normal limits, LDL 84 mg/dl, Triglycerides and total cholesterol not specified but reported as within normal limits [facility] Medical History Anemia Hypertension DM type 2 (diabetes mellitus, type 2) Surgical History No pertinent past surgical history Family History Mother Diabetes Hypertension Hyperlipidemia No family history of mental disorder Father Diabetes Hypertension Hyperlipidemia No family history of mental disorder Social History Housing: House Patient Tobacco Use Status: Current everyday Tobacco user Tobacco use type: Cigarette Cigarette Packs Per Day: 0.5 Cigarettes Per Day: 10 Years Smoked: 10 e-Cigarette/Vaping Use: Never Used Second Hand Smoke Exposure: Yes service: No Current occupational status: employed 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 Cognitive needs: No Hearing needs: No Vision needs: Yes Questionnaire Thrive Questionnaire Date Thrive assessed: 05/16/23 I am a: Patient What is your living situation today?: I choose not to answer this question Within the past 12 months, did the food you bought not last and you didn't have the money to get more?: I choose not to answer this question Within the past 12 months, did you worry whether your food would run out before you got money to buy more?: I choose not to answer this question Do you have trouble paying for medicines?: No Do you have trouble getting transportation to medical appointments?: No Do you have trouble paying your heating and electricity bill?: No Do you have trouble taking care of your child, family member or friend?: No Do you have trouble with day-to-day activities such as bathing, preparing meals, shopping, managing finances, etc.?: No Are you currently unemployed and looking for a job?: Yes Are you interested in more education?: No Please select the resources that you would like help with: Food Currently or been in a relationship where the following occur: I choose not to answer THRIVE Score: 0 AUDIT C Alcohol Use Questionnaire (AUDIT-C) 1. How often do you have a drink containing alcohol?: Never Total Score: 0 AMBIKA-7 AMB Questionnaire AMBIKA-7 Date AMBIKA - 7 assessed: 06/13/23 Feeling nervous, anxious, or on edge: 0 = Not at all Not being able to stop or control worryin = Not at all Worrying too much about different things: 0 = Not at all Trouble relaxin = Not at all Being so restless that it is hard to sit still: 0 = Not at all Becoming easily annoyed or irritable: 0 = Not at all Feeling afraid as if something awful might happen: 0 = Not at all Total AMBIKA-7 score (0-4 normal; 5-9 mild; 10-14 moderate; 15-21 severe): 0 Source: Developed by Drs. Abner Delgado, Sunita Thompson, Alan Biggs and colleagues, with an educational aurelia from [employer]. Review of Systems Const Details: Const Denies chills, Denies fatigue, Denies fever(s), Denies headache(s) and Denies weakness ENT Denies dizziness and Denies headache(s) Card Denies chest pain, Denies lightheadedness, Denies dyspnea and Denies other (Palpitations) Resp Denies cough, Denies dyspnea, Denies wheezing and Denies other ( shortness of breath) GI Denies abdominal pain, Denies melena, Denies hematochezia, Denies change in bowel habits, Denies dyspepsia and Denies nausea Denies hematuria and Denies dysuria Musc Denies abnormal gait, Denies myalgias, Denies arthralgias, Denies numbness and Denies tingling Skin/Breast Denies rash, Denies unusual bruising and Denies wounds Neuro Denies abnormal gait, Denies dizziness, Denies headache(s), Denies memory loss, Denies numbness, Denies Sensory deficit (Neuro), Denies tingling and Denies weakness Psych Denies anxiety, Denies depression, Denies memory loss Endo Denies cold intolerance, Denies fatigue, Denies heat intolerance, Denies polydipsia and Denies polyuria Aller/Immun Denies wheezing Physical exam (Primary Care) Vital Signs: Last Vital Signs Temp 97.5 F 02/27/24 15:13 Pulse 80 02/27/24 15:13 Resp 16 02/27/24 15:13 BP 126/78 02/27/24 15:13 Pulse Ox 97 02/27/24 15:13 Oxygen Delivery Method Room Air 02/27/24 15:13 BMI result Body Mass Index 29.5 Tobacco/Smoking Status: Tobacco use Status Tobacco use date assessed 02/27/24 02/27/24 15:14 Patient Tobacco Use Status Current everyday Tobacco 02/27/24 15:07 Tobacco use type Cigarette 02/27/24 15:07 e-Cigarette/Vaping Use Never Used 02/27/24 15:07 Thrive Assessment: Date of Thrive Assessment Date Thrive assessed 05/16/23 02/27/24 15:07 Currently or been in a relationship where the following occur: I choose not to answer Const Other: General: no acute distress and well developed Nutritional Appearance: well nourished Orientation/consciousness: patient oriented x3 [facility] Head: Yes normocephalic and Yes atraumatic Eyes General: appearance normal, both eyes and all related structures Pupils: Equal, round and reactive pupils present EOM: EOMs intact bilaterally Resp Effort & Inspection: normal respiratory effort Auscultation: clear to auscultation bilaterally Cardio Rate: regular rate Rhythm: regular rhythm Heart sounds: S1 normal heart sound present, S2 normal heart sound present, no gallops, no murmurs and no rubs GI Palpation (GI): No Abdominal aortic bruit present, Soft to palpation, nontender, No hepatosplenomegaly present and No Rebound tenderness present Auscultation: normal bowel sounds General: Yes no CVA tenderness Back/Spine/Pelvis Back: no CVA tenderness Extrem General: Yes normal to inspection, No edema and No calf tenderness Skin General: warm and dry. Normal skin color. Normal skin turgor Neuro General: patient oriented x3, gait normal and no focal neuro deficit Cranial nerves: Yes Equal, round and reactive pupils present Cognition (Neuro): normal cognition Gait exam (Neuro): Normal gait present Sensory Exam: No Sensory deficit (Neuro) Psych Appearance: grossly normal Affect: normal affect Attitude: cooperative Thought process: Normal thought process present Coding Level of Care Code Est Pt Level 3 (73921) Diagnoses Hypertension I10 DM type 2 (diabetes mellitus, type 2) E11.9 Iron deficiency anemia D50.9 Assessment & Plan Assessment & Plan (1) Hypertension: Code(s): I10 - Essential (primary) hypertension Category: Medical Plan: Continue current medications, lisinopril 20 mg daily and metoprolol 25 mg twice daily. Monitor blood pressure regularly to ensure it remains under 130/80 mmHg. (2) DM type 2 (diabetes mellitus, type 2): Code(s): E11.9 - Type 2 diabetes mellitus without complications Category: Medical Plan: Continue with Jardiance 10 mg daily and metformin 1000 mg twice daily. Encourage dietary modifications focusing on reducing carbohydrate intake and increasing exercise frequency if feasible. (3) Iron deficiency anemia: Code(s): D50.9 - Iron deficiency anemia, unspecified Category: Medical Plan: Continue to monitor iron levels with periodic lab work and ensure iron intake through diet. Plan I discussed with the patient the current stable state of his hypertension and the need for continuous monitoring to maintain blood pressure within targeted parameters. For his Type 2 Diabetes Mellitus, I recommended maintaining the current medication regimen while emphasizing dietary changes to achieve a Hemoglobin A1c under 7.0%. The potential of adding Trulicity was mentioned due to persistent A1c numbers; however, the patient opted to focus on dietary improvements instead. We talked about the importance of lowering carbohydrate intake and increasing exercise frequency as potential lifestyle modifications to better manage his blood glucose levels. Follow-up has been scheduled for three months to evaluate the effectiveness of these interventions and reassess his condition. Orders: Orders AMB Hemoglobin A1c Today Z13.9 - Encounter for screening, unspecified Patient Instructions: - Continue taking jardiance 10 mg daily and metformin 1000 mg twice daily. - Maintain lisinopril and metoprolol regimens as prescribed for blood pressure control. - Adhere to dietary recommendations, specifically reduce intake of carbohydrates like rice, pasta, and bread. - Aim to exercise more frequently to aid in diabetes management. - Schedule a follow-up appointment in three months or sooner if any changes in health status occur. Patient was informed and verbally consented to the use of an ambient scribe for clinic note documentation during this visit.
[2024-02-27 15:13] VITALS: BP 126/78; PULSE 80; RESP 16; TEMP 36.4; O2SAT 97; BMI 29.5
== END 2024-02-27 15:44 | disposition home or self-care (01) ==
PROVIDERS: PCP Nurse Practitioner Family; Visit Provider Nurse Practitioner Family
DX: I10 Essential (primary) hypertension (principal); E11.9 Type 2 diabetes mellitus without complications; D50.9 Iron deficiency anemia, unspecified; Z13.9 Encounter for screening, unspecified

== ENCOUNTER → 2024-02-27 14:48 | Outpatient (BNVA) | payer OTHER, SELFPAY | PROVIDERS: PCP Nurse Practitioner Family; Visit Provider Nurse Practitioner Family | DX: E11.9 Type 2 diabetes mellitus without complications (principal); I10 Essential (primary) hypertension; D50.9 Iron deficiency anemia, unspecified | CPT/HCPCS: 83036; 99212 ==

== ENCOUNTER 2024-05-30 14:52 | Outpatient (AMB) | payer OTHER, SELFPAY ==
--- NOTE | 2024-05-30 14:56 | A.OFFPC_ITS ---
Vital Signs 05/30/24 15:01 05/30/24 15:34 Height 6 ft 4 in Weight 242 lb 4 oz BMI 29.5 BP 134/74 120/70 Blood Pressure Location Rt brachial Lt brachial Position Sitting Sitting Respiration 16 Pulse 77 Pulse Source Pulse Oximeter Temp 97.7 F Temp Source Oral Pulse Oximetry (%) 98 Oxygen Delivery Method Room Air Intake Visit Reasons: 3 mos DM, HTN Intake Note: patient here for follow up on DM and HTN [employer] Required: No Allergies No Known Allergies Allergy (Verified 05/30/24 15:25) Medication List - Last Reconciled 05/30/24 by Luz Hammond CNP blood sugar diagnostic (FreeStyle Lite Strips) As directed TID blood-glucose meter (FreeStyle Lite Meter kit) As directed empagliflozin (Jardiance) 10 mg PO DAILY 30 days lancets (FreeStyle Lancets) As directed lisinopril 20 mg PO DAILY 30 days metformin 1,000 mg PO BID 30 days metoprolol tartrate 25 mg PO BID 30 days Tobacco use date assessed: 05/30/24 Dental Screening Dental Screen Date: 05/30/24 Did you have a dental visit in the last 12 months?: No Did you have a dental problem in the last 6 months where you did not have access to dental care?: No Was dental information given to patient?: Yes HPI HPI Comments History of Present Illness Details 53-year-old male presents for hypertensi on and diabetes follow-up. He admits to taking his medications as prescribed without adverse reactions. He admits to making healthy dietary choices and exercising routinely. He offers no complaints and denies acute symptoms at this time. [facility] Medical History Anemia Hypertension DM type 2 (diabetes mellitus, type 2) Surgical History No pertinent past surgical history Family History Mother Diabetes Hypertension Hyperlipidemia No family history of mental disorder Father Diabetes Hypertension Hyperlipidemia No family history of mental disorder Social History Housing: House Patient Tobacco Use Status: Current everyday Tobacco user Tobacco use type: Cigarette Cigarette Packs Per Day: 0.5 Cigarettes Per Day: 10 Years Smoked: 10 e-Cigarette/Vaping Use: Never Used Second Hand Smoke Exposure: Yes service: No Current occupational status: employed 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 1. Little interest or pleasure in doing things: not at all 2. Feeling down, depressed, or hopeless: not at all 3. Trouble falling or staying asleep, or sleeping too much: not at all 4. Feeling tired or having little energy: several days 5. Poor appetite or overeating: not at all 6. Feeling bad about yourself - or that you are a failure or have let yourself or your family down: not at all 7. Trouble concentrating on things, such as reading the newspaper or watching television: not at all 8. Moving or speaking so slowly that other people could have noticed. Or the opposite - being so fidgety or restless that you have been moving around a lot more than usual: not at all 9. Thoughts that you would be better off or of hurting yourself in some way: not at all Total score: 1 Depression Screening Interpretation: Negative Depression Screening Done: Yes Source: Developed by Drs. Abner Delgado, Sunita Thompson, Alan Biggs and colleagues, with an educational aurelia from [employer]. Thrive Questionnaire Date Thrive assessed: 05/30/24 I am a: Patient What is your living situation today?: I choose not to answer this question Within the past 12 months, did the food you bought not last and you didn't have the money to get more?: I choose not to answer this question Within the past 12 months, did you worry whether your food would run out before you got money to buy more?: I choose not to answer this question Do you have trouble paying for medicines?: No Do you have trouble getting transportation to medical appointments?: No Do you have trouble paying your heating and electricity bill?: No Do you have trouble taking care of your child, family member or friend?: No Do you have trouble with day-to-day activities such as bathing, preparing meals, shopping, managing finances, etc.?: No Are you currently unemployed and looking for a job?: No Are you interested in more education?: No Please select the resources that you would like help with: None Currently or been in a relationship where the following occur: I choose not to answer THRIVE Score: 0 AUDIT C Alcohol Use Questionnaire (AUDIT-C) 1. How often do you have a drink containing alcohol?: Never Total Score: 0 AMIBKA-7 AMB Questionnaire AMBIKA-7 Date AMBIKA - 7 assessed: 05/30/24 Feeling nervous, anxious, or on edge: 0 = Not at all Not being able to stop or control worryin = Not at all Worrying too much about different things: 0 = Not at all Trouble relaxin = Not at all Being so restless that it is hard to sit still: 0 = Not at all Becoming easily annoyed or irritable: 0 = Not at all Feeling afraid as if something awful might happen: 0 = Not at all Total AMBIKA-7 score (0-4 normal; 5-9 mild; 10-14 moderate; 15-21 severe): 0 Source: Developed by Drs. Abner Delgado, Sunita Thompson, Alan Biggs and colleagues, with an educational aurelia from [employer]. AMBIKA-7 Assessment Billing AMBIKA-7 Assessment Tool: AMBIKA-7 Assessment 42537 Review of Systems Const Details: Const Denies chills, Denies fatigue, Denies fever(s), Denies headache(s) and Denies weakness ENT Denies dizziness and Denies headache(s) Card Denies chest pain, Denies lightheadedness, Denies dyspnea and Denies other (Palpitations) Resp Denies cough, Denies dyspnea, Denies wheezing and Denies other ( shortness of breath) GI Denies abdominal pain, Denies melena, Denies hematochezia, Denies change in bowel habits, Denies dyspepsia and Denies nausea Denies hematuria and Denies dysuria Musc Denies abnormal gait, Denies myalgias, Denies arthralgias, Denies numbness and Denies tingling Skin/Breast Denies rash, Denies unusual bruising and Denies wounds Neuro Denies abnormal gait, Denies dizziness, Denies headache(s), Denies memory loss, Denies numbness, Denies Sensory deficit (Neuro), Denies tingling and Denies weakness Psych Denies anxiety, Denies depression, Denies memory loss Endo Denies cold intolerance, Denies fatigue, Denies heat intolerance, Denies polydipsia and Denies polyuria Aller/Immun Denies wheezing Physical exam (Primary Care) Vital Signs: Last Vital Signs Temp 97.7 F 05/30/24 15:01 Pulse 77 05/30/24 15:01 Resp 16 05/30/24 15:01 BP 134/74 05/30/24 15:01 Pulse Ox 98 05/30/24 15:01 Oxygen Delivery Method Room Air 05/30/24 15:01 BMI result Body Mass Index 29.5 Tobacco/Smoking Status: Tobacco use Status Tobacco use date assessed 05/30/24 05/30/24 15:01 Patient Tobacco Use Status Current everyday Tobacco 05/30/24 14:59 Tobacco use type Cigarette 05/30/24 14:59 e-Cigarette/Vaping Use Never Used 05/30/24 14:59 PHQ-9: PHQ-9 Score PHQ-9: Total score 1 05/30/24 14:59 Depression Screening Interpretation: Negative Thrive Assessment: Date of Thrive Assessment Date Thrive assessed 05/30/24 05/30/24 14:59 Currently or been in a relationship where the following occur: I choose not to answer Const Other: General: no acute distress and well developed Nutritional Appearance: well nourished Orientation/consciousness: patient oriented x3 HENMT Head: Yes normocephalic and Yes atraumatic Eyes General: appearance normal, both eyes and all related structures Pupils: Equal, round and reactive pupils present EOM: EOMs intact bilaterally Resp Effort & Inspection: normal respiratory effort Auscultation: clear to auscultation bilaterally Cardio Rate: regular rate Rhythm: regular rhythm Heart sounds: S1 normal heart sound present, S2 normal heart sound present, no gallops, no murmurs and no rubs GI Palpation (GI): No Abdominal aortic bruit present, Soft to palpation, nontender, No hepatosplenomegaly present and No Rebound tenderness present Auscultation: normal bowel sounds General: Yes no CVA tenderness Back/Spine/Pelvis Back: no CVA tenderness Cervical Spine: cervical ROM normal and No Cervical spine tenderness Thoracic/Lumbar Spine: thoraco-lumbar ROM normal, No pain with thoraco-lumbar ROM, No thoracic spinal tenderness and No lumbar spinal tenderness Extrem General: Yes normal to inspection, No edema and No calf tenderness Skin General: warm and dry. Normal skin color. Normal skin turgor Neuro General: patient oriented x3, gait normal and no focal neuro deficit Cranial nerves: Yes Equal, round and reactive pupils present Cognition (Neuro): normal cognition Gait exam (Neuro): Normal gait present Sensory Exam: No Sensory deficit (Neuro) Psych Appearance: grossly normal Affect: normal affect Attitude: cooperative Thought process: Normal thought process present Results AMB Hemoglobin A1c AMB Hemoglobin A1c 6.4 % Last Edit by Charisma Ratliff on 05/30/24 16:03 Coding Level of Care Code Est Pt Level 3 (74692) Diagnoses Hypertension I10 DM type 2 (diabetes mellitus, type 2) E11.9 Laboratory tests ordered as part of a complete physical exam (CPE) Z00.00 Additional Codes AMBIKA-7 Assessment Billing - AMBIKA-7 Assessment Tool: AMBIKA-7 Assessment 75318 ([id number]) Assessment & Plan Assessment & Plan (1) Hypertension: Code(s): I10 - Essential (primary) hypertension Category: Medical Plan: Resting blood pressure is 120/70, within goal of less than 130/80. Continue current treatment regimen. Advise plafond lab work and follow-up an extended physical exam in a month. Return sooner with symptoms or concerns. Verbalized understanding and agreed with treatment plan (2) DM type 2 (diabetes mellitus, type 2): Code(s): E11.9 - Type 2 diabetes mellitus without complications Category: Medical Plan: Recent A1c 6.4%, within goal of less than 7.0%. Previous A1c was 7.1%. Continue current treatment regimen. Will recheck A1c in 3 months. Verbalized understanding and agreed with treatment plan. (3) Laboratory tests ordered as part of a complete physical exam (CPE): Code(s): Z00.00 - Encounter for general adult medical examination without abnormal findings Category: Medical Plan: Fasting labs ordered as part of a complete physical exam. Advised to fast for at least 10 hours before getting labs drawn. May drink water Verbalized understanding and agreed with treatment plan. Orders: Orders Comprehensive [place]. Panel Fast Today Z00.00 - Encounter for general adult medical examination without abnormal findings Vitamin D 25-OH Total Today Z00.00 - Encounter for general adult medical examination without abnormal findings Lipid Panel Today Z00.00 - Encounter for general adult medical examination without abnormal findings Complete Blood Count Auto Diff Today Z00.00 - Encounter for general adult medical examination without abnormal findings TSH reflex Free T4 Today Z00.00 - Encounter for general adult medical examination without abnormal findings Microalbumin, Random (w Creat) Today Z00.00 - Encounter for general adult medical examination without abnormal findings UA CC w/rflx Micro + Cult Today Z00.00 - Encounter for general adult medical examination without abnormal findings AMB Hemoglobin A1c Today Z13.9 - Encounter for screening, unspecified Medications: Refilled metoprolol tartrate 25 mg PO BID 30 days 60 tabs 3RF metformin 1,000 mg PO BID 30 days 60 tabs 3RF empagliflozin (Jardiance) 10 mg PO DAILY 30 days 30 tabs 3RF lisinopril 20 mg PO DAILY 30 days 30 tabs 3RF
[2024-05-30 15:01] VITALS: BP 134/74; PULSE 77; RESP 16; TEMP 36.5; O2SAT 98; BMI 29.5
[2024-05-30 15:34] VITALS: BP 120/70
--- OUTSIDE RECORDS SUMMARY | 2024-05-30 18:21 | XMS_ITS | Clinical Summary ---
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 Name Role Phone Unavailable Primary Care Provider Unavailabl e Social History Tobacco Use Types Packs/Day Years Used Date Smoking Tobacco: Every Day Cigarettes 0.5 12.2 Started: 04/04/2012 Smokeless Tobacco: Never Alcohol Use Standard Drinks/Week Comments Not Currently 0 (1 standard drink = 0.6 oz pur e alcohol) Sex and Gender Information Value Date Recorded Sex Assigned at Not on file Legal Sex Male 4:37 AM EST Gender Identity Not on file Sexual Orientation Not on file Obstetrics History Last Filed Vital Signs Vital Sign Reading Time Taken Comments Blood Pressure 110/70 08/31/2023 3:38 PM EDT Pulse 92 08/31/2023 3:38 PM EDT Temperature - - Respiratory Rate - - Oxygen Saturation - - Inhaled Oxygen Concentration - - Weight 113 kg (249 lb) 08/31/2023 3:38 PM EDT Height 193 cm (6' 4 ) 08/31/2023 3:38 PM EDT Body Mass Index 30.31 08/31/2023 3:38 PM EDT Plan of Treatment Health Maintenance Due Date Last Done Comments Diabetes: Annual GFR (Glomer ular Filtration Rate) 1969 Diabetes: Annual Foot Exam 09/16/1979 Diabetes: Annual Retina Eye Exam 09/16/1979 DTaP,Tdap,and Td Vaccines (1 - Tdap) 1988 Hepatitis B Vaccines (1 of 3 - 19+ 3-dose series) 1988 Pneumococcal Vaccine: 50+ Ye ars (1 of 2 - PCV) 1988 Pneumococcal Vaccine: Pediat rics (0 to 5 Years) and At-Risk Patients (6 to 64 Years) (1 of 2 - PCV) 1988 Zoster Vaccines (1 of 2) 09/16/2019 COVID-19 Vaccine (2023-2 5 season) 2023 Influenza Vaccine (#1) 2023 Cholesterol Screening (Lipid Panel) 01/27/2024 Colorectal Cancer Screening: Colonoscopy 01/27/2024 Depression Screening 01/27/2024 Diabetes: Annual Urine Albumin-Creatinine Ratio (uACR) 01/27/2024 Diabetes: Blood Sugar Contro l Test (HGBA1C) 01/27/2024 HIV Screening 01/27/2024 Hepatitis C Screening 01/27/2024 Social Influencers of Health Screening 01/27/2024 Hypertension/CHF/CAD Annual BMP Blood Test 02/28/2024 HIB Vaccines Aged Out No longer eligi ble based on patient's age to complete this topic HPV Vaccines Aged Out No longer eligi ble based on patient's age to complete this topic Hepatitis A Vaccines Aged Out No long er eligible based on patient's age to complete this topic IPV Vaccines Aged Out No longer eligi ble based on patient's age to complete this topic MMR Vaccines Aged Out No longer eligi ble based on patient's age to complete this topic Meningococcal ACWY Vaccine Aged Out N o longer eligible based on patient's age to complete this topic Meningococcal B Vacine Aged Out No lo nger eligible based on patient's age to complete this topic RSV Immunization Patients Un josefa 20 months Aged Out No longer eligible b ased on patient's age to complete this topic Varicella Vaccines Aged Out No longer eligible based on patient's age to complete this topic
== END 2024-05-30 15:32 | disposition home or self-care (01) ==
PROVIDERS: PCP Nurse Practitioner Family; Visit Provider Nurse Practitioner Family
DX: I10 Essential (primary) hypertension (principal); E11.9 Type 2 diabetes mellitus without complications; Z00.00 Encounter for general adult medical examination without abnormal findings; Z13.9 Encounter for screening, unspecified

== ENCOUNTER → 2024-05-30 14:52 | Outpatient (BNVA) | payer OTHER, SELFPAY | PROVIDERS: PCP Nurse Practitioner Family; Visit Provider Nurse Practitioner Family | DX: I10 Essential (primary) hypertension (principal); E11.9 Type 2 diabetes mellitus without complications | CPT/HCPCS: 83036; 96127; 99212 ==

== ENCOUNTER 2024-06-29 14:53 | Outpatient (AMB) | payer OTHER, SELFPAY ==
--- NOTE | 2024-06-29 15:05 | MHC.PC.OV ---
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: No Allergies No Known Allergies Allergy (Verified 06/29/24 15:12) Medication List - Last Reconciled 06/29/24 by Luz Hammond CNP blood sugar diagnostic (FreeStyle Lite Strips) As directed TID blood-glucose meter (FreeStyle Lite Meter kit) As directed empagliflozin (Jardiance) 10 mg PO DAILY 30 days lancets (FreeStyle Lancets) As directed lisinopril 20 mg PO DAILY 30 days metformin 1,000 mg PO BID 30 days metoprolol tartrate 25 mg PO BID 30 days Tobacco use date assessed: 06/29/24 Dental Screening Dental Screen Date: 06/29/24 Did you have a dental visit in the last 12 months?: No Did you have a dental problem in the last 6 months where you did not have access to dental care?: No Was dental information given to patient?: Yes HPI HPI Comments History of Present Illness Details 53-year-old male presents for an extended physical exam. He admits to taking his medications as prescribed without adverse reactions. He did not get blood work done as planned for this visit. Acute issue(s) - HTN: He is on lisinopril 20 mg daily and metoprolol 25 mg twice daily - DM2: He is on metformin 1000 mg twice daily and Jardiance 10 mg daily Past Medical History - Type 2 diabetes, hypertension, iron-deficiency anemia Social History - Smokes 5 cigarettes daily, has been smoking an average of 5 cigarettes daily 5 years. Does not vape. Drinks few beers only on vacations. Denies recreational drug use - Has been making healthy dietary choices. Exercises routinely. Generally sleep well Health maintenance - He has never had an eye exam by Ophthalmology. He cancelled his first appointment [facility]. New ophthalmology referral made - Last dental visit was within a year; encouraged to schedule an appointment with his dentist for routine dental care. - Last tetanus vaccine unknown; declines Tdap vaccine today - Has not been vaccinated for the flu this season; declines vaccination - He has never been vaccinated for shingles or pneumonia; instructed on and encouraged both vaccines but patient declines - He has never had a colonoscopy. He declines referral for colonoscopy. Cologuard test ordered [facility] [place] Medical History Anemia Hypertension DM type 2 (diabetes mellitus, type 2) Surgical History No pertinent past surgical history Family History Mother Diabetes Hypertension Hyperlipidemia No family history of mental disorder Father Diabetes Hypertension Hyperlipidemia No family history of mental disorder Social History Housing: House Patient Tobacco Use Status: Current everyday Tobacco user Tobacco use type: Cigarette Cigarette Packs Per Day: 0.5 Cigarettes Per Day: 10 Years Smoked: 10 e-Cigarette/Vaping Use: Never Used Second Hand Smoke Exposure: Yes service: No Current occupational status: employed 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 1. Little interest or pleasure in doing things: not at all 2. Feeling down, depressed, or hopeless: not at all 3. Trouble falling or staying asleep, or sleeping too much: not at all 4. Feeling tired or having little energy: not at all 5. Poor appetite or overeating: not at all 6. Feeling bad about yourself - or that you are a failure or have let yourself or your family down: not at all 7. Trouble concentrating on things, such as reading the newspaper or watching television: not at all 8. Moving or speaking so slowly that other people could have noticed. Or the opposite - being so fidgety or restless that you have been moving around a lot more than usual: not at all 9. Thoughts that you would be better off or of hurting yourself in some way: not at all Total score: 0 Depression Screening Interpretation: Negative Depression Screening Done: Yes 64501 - PHQ-9 Billing: Yes Source: Developed by Drs. Abner Delgado, Sunita Thompson, Alan Biggs and colleagues, with an educational aurelia from [employer] Thrive Questionnaire Date Thrive assessed: 06/29/24 I am a: Patient What is your living situation today?: I have a steady place to live Within the past 12 months, did the food you bought not last and you didn't have the money to get more?: Never true Within the past 12 months, did you worry whether your food would run out before you got money to buy more?: Never true Do you have trouble paying for medicines?: No Do you have trouble getting transportation to medical appointments?: No Do you have trouble paying your heating and electricity bill?: No Do you have trouble taking care of your child, family member or friend?: No Do you have trouble with day-to-day activities such as bathing, preparing meals, shopping, managing finances, etc.?: No Are you currently unemployed and looking for a job?: No Are you interested in more education?: No Please select the resources that you would like help with: None Currently or been in a relationship where the following occur: No concerns reported and I choose not to answer THRIVE Score: 0 AUDIT C Alcohol Use Questionnaire (AUDIT-C) 1. How often do you have a drink containing alcohol?: Monthly or less 2. How many drinks containing alcohol do you have on a typical day when you are drinking?: 3 or 4 3. How often do you have six or more drinks on one occasion?: Never Total Score: 2 Score Reviewed/Action Taken: Yes AMBIKA-7 AMB Questionnaire AMBIKA-7 Date AMBIKA - 7 assessed: 06/29/24 Feeling nervous, anxious, or on edge: 0 = Not at all Not being able to stop or control worryin = Not at all Worrying too much about different things: 0 = Not at all Trouble relaxin = Not at all Being so restless that it is hard to sit still: 0 = Not at all Becoming easily annoyed or irritable: 0 = Not at all Feeling afraid as if something awful might happen: 0 = Not at all Total AMBIKA-7 score (0-4 normal; 5-9 mild; 10-14 moderate; 15-21 severe): 0 Source: Developed by Drs. Abner Delgado, Sunita Thompson, Alan Biggs and colleagues, with an educational aurelia from [employer] AMBIKA-7 Assessment Billing AMBIKA-7 Assessment Tool: AMBIKA-7 Assessment 32643 Review of Systems Const Details: Denies chills, Denies fatigue, Denies fever(s), Denies headache(s) and Denies weakness HEENT Denies change in vision, Denies dizziness, Denies headache(s), Denies hearing loss, Denies nasal congestion, Denies sinus pain, Denies sinus pressure and Denies sore throat Card Denies chest pain, Denies lightheadedness, Denies dyspnea and Denies other (palpitations) Resp Denies cough, Denies dyspnea and Denies wheezing GI Denies abdominal pain, Denies melena, Denies hematochezia, Denies change in bowel habits, Denies dyspepsia and Denies nausea Denies hematuria and Denies dysuria Musc Denies abnormal gait, Denies myalgias, Denies arthralgias, Denies numbness and Denies tingling Skin/Breast Denies rash, Denies unusual bruising and Denies wounds Neuro Denies abnormal gait, Denies dizziness, Denies headache(s), Denies memory loss, Denies numbness, Denies Sensory deficit (Neuro), Denies tingling and Denies weakness Psych Denies anxiety, Denies depression and Denies memory loss Endo Denies cold intolerance, Denies fatigue, Denies heat intolerance, Denies polydipsia and Denies polyuria Bennie/Lymph Denies easy bleeding and Denies easy bruising Aller/Immun Denies wheezing Physical exam (Primary Care) Vital Signs: Last Vital Signs Temp 97.6 F 06/29/24 15:10 Pulse 79 06/29/24 15:10 Resp 16 06/29/24 15:10 Pulse Ox 98 06/29/24 15:10 Oxygen Delivery Method Room Air 06/29/24 15:10 BMI result Body Mass Index 29.5 Tobacco/Smoking Status: Tobacco use Status Tobacco use date assessed 06/29/24 06/29/24 15:09 Patient Tobacco Use Status Current everyday Tobacco 06/29/24 15:08 Tobacco use type Cigarette 06/29/24 15:08 e-Cigarette/Vaping Use Never Used 06/29/24 15:08 Depression Screening Interpretation: Negative Thrive Assessment: Date of Thrive Assessment Date Thrive assessed 05/30/24 06/29/24 15:08 Currently or been in a relationship where the following occur: No concerns reported and I choose not to answer Const Other: General: no acute distress, well developed, alert and awake Nutritional Appearance: well nourished Orientation/consciousness: patient oriented x3 HENMT Head: Yes normocephalic and Yes atraumatic Ears: hearing grossly normal bilaterally and TM's normal bilaterally General nose exam: Normal external nose present and Normal nares present Mouth: Normal oral and palatal mucosa present and moist mucous membranes Teeth and gingiva: dentition normal Throat: Yes oropharynx normal Eyes Pupils: Equal, round and reactive pupils present and Pupil accommodation reflex normal EOM: EOMs intact bilaterally Neck Neck: Yes normal visual inspection, Yes no lymphadenopathy and Yes trachea midline Thyroid: Thyroid normal Carotids: no bruits Lymphatic: no lymphadenopathy noted Chest Chest palpation & inspection: normal inspection of the chest Resp Effort & Inspection: normal respiratory effort Auscultation: clear to auscultation bilaterally Cardio Rate: regular rate Rhythm: regular rhythm Heart sounds: S1 normal heart sound present, S2 normal heart sound present, no gallops, no murmurs and no rubs Bruits: no abdominal aortic bruits and no carotid bruits GI Palpation (GI): No Abdominal aortic bruit present, Soft to palpation, nontender, No hepatosplenomegaly present and No Rebound tenderness present Auscultation: normal bowel sounds General: Yes no CVA tenderness Back/Spine/Pelvis Back: no CVA tenderness Cervical Spine: cervical ROM normal and No Cervical spine tenderness Thoracic/Lumbar Spine: thoraco-lumbar ROM normal, No pain with thoraco-lumbar ROM, No thoracic spinal tenderness and No lumbar spinal tenderness Skin General: warm and dry. Normal skin color. Normal skin turgor Lesions: no lesions Rashes: no rashes Trauma: no lacerations or abrasions Wounds: no wounds Nails: normal Neuro General: patient oriented x3, gait normal and CN's II-XI intact bilaterally Cranial nerves: Yes Equal, round and reactive pupils present Cognition (Neuro): normal cognition Gait exam (Neuro): Normal gait present Motor exam (neuro): 5/5 motor strength present throughout Sensory Exam: No Sensory deficit (Neuro) Deep tendon reflexes (DTR's): Right patellar reflex intensity grade: 2+ and Left patellar reflex intensity grade: 2+ Extrem General: Yes normal to inspection, No edema and No calf tenderness Psych Appearance: grossly normal Affect: normal affect Attitude: cooperative Thought process: Normal thought process present Coding Level of Care Code Est Pt Level 3 (12629) Est Pt Prev Care 40-64y(16107) Diagnoses Normal physical examination, routine Z00.00 Hypertension I10 Colon cancer screening Z12.11 DM type 2 (diabetes mellitus, type 2) E11.9 Smoking 1/2 pack a day or less F17.210 Additional Codes AMBIKA-7 Assessment Billing - AMBIKA-7 Assessment Tool: AMBIKA-7 Assessment 73837 ([id number]) PHQ-9 - 15056 - PHQ-9 Billing: Yes ([id number]) Assessment & Plan Assessment & Plan (1) Normal physical examination, routine: Code(s): Z00.00 - Encounter for general adult medical examination without abnormal findings Category: Medical Plan: No significant functional limitation noted. Continue current treatment regimen. Perform fasting lab work 2-3 days before next visit. Follow-up in 1 month for hypertension or return sooner with symptoms or concerns. Verbalized understanding and agreed with treatment plan. (2) Hypertension: Code(s): I10 - Essential (primary) hypertension Category: Medical Plan: Resting blood pressure is 140/70, above goal of less than 130/80. Will increase metoprolol to 50 mg twice daily; advised to take as prescribed. Low-sodium diet encouraged. Follow-up in 1 month or sooner with worsening or new symptoms such as blurry vision, persistent headache, dizziness, lightheadedness. Verbalized understanding and agreed with treatment plan. (3) Colon cancer screening: Code(s): Z12.11 - Encounter for screening for malignant neoplasm of colon Category: Medical Plan: He has never had a colonoscopy. He declines referral for colonoscopy. Cologuard test ordered. (4) DM type 2 (diabetes mellitus, type 2): Code(s): E11.9 - Type 2 diabetes mellitus without complications Category: Medical Plan: Continue current treatment regimen. Referred to Ophthalmology for diabetic retinal exam. Verbalized understanding and agreed with the plan. (5) Smoking 1/2 pack a day or less: Code(s): F17.210 - Nicotine dependence, cigarettes, uncomplicated Category: Social Hx Plan: He smokes 5 cigarettes daily and has been smoking an average of 5 cigarettes daily 5 years. Instructed on the health risks and complications of cigarette smoking and cessation encouraged. He is interested in nicotine treatment for smoking cessation. Nicotine patch ordered; advised to use as prescribed. Follow-up as needed. Verbalized understanding and agreed with treatment plan. Orders: Referrals Cologuard Test Z12.11 - Encounter for screening for malignant neoplasm of colon, Z12.12 - Encounter for screening for malignant neoplasm of rectum Ophthalmology Referral E11.9 - Type 2 diabetes mellitus without complications Medications: New metoprolol tartrate 50 mg PO Q12H 30 days 60 tabs 3RF nicotine Apply 14 mg patch daily x6 weeks, then apply 7 mg patch daily x2 weeks 1 patch transdermal Q24H 56 ea 0RF Discontinued metoprolol tartrate Discontinued Reason: Doctor's Order 25 mg PO BID 30 days 60 tabs 3RF
[2024-06-29 15:10] VITALS: BP 146/81; PULSE 79; RESP 16; TEMP 36.4; O2SAT 98; BMI 29.5
[2024-06-29 15:17] VITALS: BP 140/70; PULSE 80
== END 2024-06-29 15:37 | disposition home or self-care (01) ==
LOC: HO.HMCFM 14:54
PROVIDERS: PCP Nurse Practitioner Family; Visit Provider Nurse Practitioner Family
DX: Z00.00 Encounter for general adult medical examination without abnormal findings (principal); E11.9 Type 2 diabetes mellitus without complications; I10 Essential (primary) hypertension; Z12.11 Encounter for screening for malignant neoplasm of colon; F17.210 Nicotine dependence, cigarettes, uncomplicated

== ENCOUNTER → 2024-06-29 14:53 | Outpatient (BNVA) | payer OTHER, SELFPAY | PROVIDERS: PCP Nurse Practitioner Family; Visit Provider Nurse Practitioner Family | DX: Z00.00 Encounter for general adult medical examination without abnormal findings (principal); I10 Essential (primary) hypertension; E11.9 Type 2 diabetes mellitus without complications; F17.210 Nicotine dependence, cigarettes, uncomplicated | CPT/HCPCS: 96127; 99212; 99396 ==

== ENCOUNTER 2024-10-13 07:06 | Outpatient (REF) | payer BC, SELFPAY ==
[2024-10-13 07:21] LABS: MANUAL DIFF FLAG NO
[2024-10-13 07:38] LABS: Hematocrit 44.0 % (42.0-52.0); Hemoglobin 15.3 g/dl (14.0-18.0); Imm Gran Abs Auto 0.02 X10*3/uL (0.00-0.03); Imm Gran Pct Auto 0.3 % (0.0-0.4); Lymphocytes Absolute Auto 2.5 X10*3/uL (1.2-4.9); Mean Corpuscular HGB Conc 34.8 g/dl (31.0-36.0); Mean Corpuscular Hemoglobin 31.7 pg (27.0-33.0); Mean Corpuscular Volume 91.3 fL (80.0-98.0); NRBC Abs Auto 0.000 X10*3/uL (0.0-0.012); NRBC Pct Auto 0.0 /100WBC (0.0-0.2); Platelet Count 203 X10*3/uL (160-400); Red Blood Count 4.82 X10*6/uL (4.60-5.80); White Blood Count 7.3 X10*3/uL (4.8-10.8)
[2024-10-13 07:43] LABS: Appearance Urine Clear; Glucose Urine UA Negative (Negative); PH 5.5 (5.0-9.0); Specific Gravity - Urine 1.010 (1.005-1.025)
[2024-10-13 08:15] LABS: Alanine Aminotransferase 25 U/L (0-40); Albumin Level 4.7 g/dL (3.5-5.0); Alkaline Phosphatase 77 U/L (39-117); Anion Gap 9 (12-20); Aspartate Amino Transferase 23 U/L (5-37); Blood Urea Nitrogen 13 mg/dL (9-16); Calcium 9.7 mg/dL (8.4-10.2); Carbon Dioxide 30 mmol/L (22-29); Chloride 106 mmol/L (96-108); Cholesterol 141 mg/dL (<200); Estimated Glomerular Filt Rate > 60; HDL Cholesterol 46 mg/dL (>40); Potassium 4.4 mmol/L (3.3-5.1); Sodium 141 mmol/L (135-145); Total Protein 7.5 g/dL (6.5-8.0); Triglycerides 85 mg/dL (<150)
== END 2024-10-13 07:07 | disposition home or self-care (01) ==
LOC: HO.LAB 07:06
PROVIDERS: PCP Nurse Practitioner Family; Visit Provider Nurse Practitioner Family
DX: Z00.00 Encounter for general adult medical examination without abnormal findings (principal)
CPT/HCPCS: 36415; 80053; 80061; 81003; 82043; 82306; 82570; 84443; 85025

== ENCOUNTER 2024-10-15 15:07 | Outpatient (AMB) | payer BC, SELFPAY ==
--- NOTE | 2024-10-15 15:09 | A.OFFPC_ITS ---
Vital Signs 10/15/24 15:14 10/15/24 15:51 Height 6 ft 4 in Weight 292 lb 4 oz BMI 35.6 BP 131/74 120/70 Blood Pressure Location Rt brachial Rt brachial Position Sitting Sitting Respiration 16 Pulse 86 Pulse Source Pulse Oximeter Temp 98.1 F Temp Source Oral Pulse Oximetry (%) 97 Oxygen Delivery Method Room Air Intake Visit Reasons: Hypertension Intake Note: patient here for follow up on HTN Environmental Compliance Specialist Required: No Allergies No Known Allergies Allergy (Verified 10/15/24 15:45) Medication List - Last Reconciled 10/15/24 by Luz Hammond CNP blood sugar diagnostic (FreeStyle Lite Strips) As directed TID blood-glucose meter (FreeStyle Lite Meter kit) As directed empagliflozin (Jardiance) 10 mg PO DAILY 30 days lancets (FreeStyle Lancets) As directed lisinopril 20 mg PO DAILY 30 days metformin 1,000 mg PO BID 30 days metoprolol tartrate 50 mg PO Q12H 30 days nicotine 1 patch transdermal Q24H Tobacco use date assessed: 10/15/24 Dental Screening Dental Screen Date: 10/15/24 Did you have a dental visit in the last 12 months?: No Did you have a dental problem in the last 6 months where you did not have access to dental care?: No Was dental information given to patient?: Patient has dentist HPI HPI Comments History of Present Illness Details 54-year-old male presents for hypertensi on and recent labs review follow-up. He admits to taking his medications as prescribed without adverse reactions. He notes that he has been making healthy dietary choices and exercising routinely. He offers no complaints and denies acute symptoms at this time. [facility] Medical History Anemia Hypertension DM type 2 (diabetes mellitus, type 2) Surgical History No pertinent past surgical history Family History Mother Diabetes Hypertension Hyperlipidemia No family history of mental disorder Father Diabetes Hypertension Hyperlipidemia No family history of mental disorder Social History Housing: House Patient Tobacco Use Status: Current everyday Tobacco user Tobacco use type: Cigarette Cigarette Packs Per Day: 0.5 Cigarettes Per Day: 10 Years Smoked: 10 Packs Per Year: 5 Packs per year/per ci.00 e-Cigarette/Vaping Use: Never Used Second Hand Smoke Exposure: Yes service: No Current occupational status: employed 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 Cognitive needs: No Hearing needs: No Vision needs: Yes Questionnaire Thrive Questionnaire Date Thrive assessed: 05/30/24 I am a: Patient What is your living situation today?: I choose not to answer this question Within the past 12 months, did the food you bought not last and you didn't have the money to get more?: I choose not to answer this question Within the past 12 months, did you worry whether your food would run out before you got money to buy more?: I choose not to answer this question Do you have trouble paying for medicines?: No Do you have trouble getting transportation to medical appointments?: No Do you have trouble paying your heating and electricity bill?: No Do you have trouble taking care of your child, family member or friend?: No Do you have trouble with day-to-day activities such as bathing, preparing meals, shopping, managing finances, etc.?: No Are you currently unemployed and looking for a job?: No Are you interested in more education?: No Please select the resources that you would like help with: None Currently or been in a relationship where the following occur: I choose not to answer THRIVE Score: 0 AMBIKA-7 AMB Questionnaire AMBIKA-7 Date AMBIKA - 7 assessed: 06/29/24 Source: Developed by Drs. Abner Delgado, Sunita Thompson, Alan Biggs and colleagues, with an educational aurelia from [employer]. Review of Systems Const Details: Const Denies chills, Denies fatigue, Denies fever(s), Denies headache(s) and Denies weakness ENT Denies dizziness and Denies headache(s) Card Denies chest pain, Denies lightheadedness, Denies dyspnea and Denies other (Palpitations) Resp Denies cough, Denies dyspnea, Denies wheezing and Denies other ( shortness of breath) GI Denies abdominal pain, Denies melena, Denies hematochezia, Denies change in bowel habits, Denies dyspepsia and Denies nausea Denies hematuria and Denies dysuria Musc Denies abnormal gait, Denies myalgias, Denies arthralgias, Denies numbness and Denies tingling Skin/Breast Denies rash, Denies unusual bruising and Denies wounds Neuro Denies abnormal gait, Denies dizziness, Denies headache(s), Denies memory loss, Denies numbness, Denies Sensory deficit (Neuro), Denies tingling and Denies weakness Psych Denies anxiety, Denies depression, Denies memory loss Endo Denies cold intolerance, Denies fatigue, Denies heat intolerance, Denies polydipsia and Denies polyuria Aller/Immun Denies wheezing Physical exam (Primary Care) Vital Signs: Last Vital Signs Temp 98.1 F 10/15/24 15:14 Pulse 86 10/15/24 15:14 Resp 16 10/15/24 15:14 BP 131/74 10/15/24 15:14 Pulse Ox 97 10/15/24 15:14 Oxygen Delivery Method Room Air 10/15/24 15:14 BMI result Body Mass Index 35.6 Tobacco/Smoking Status: Tobacco use Status Tobacco use date assessed 10/15/24 10/15/24 15:17 Patient Tobacco Use Status Current everyday Tobacco 10/15/24 15:12 Tobacco use type Cigarette 10/15/24 15:12 e-Cigarette/Vaping Use Never Used 10/15/24 15:12 Thrive Assessment: Date of Thrive Assessment Date Thrive assessed 05/30/24 10/15/24 15:12 Currently or been in a relationship where the following occur: I choose not to answer Const Other: General: no acute distress and well developed Nutritional Appearance: well nourished Orientation/consciousness: patient oriented x3 [facility]: Yes normocephalic and Yes atraumatic Eyes General: appearance normal, both eyes and all related structures Pupils: Equal, round and reactive pupils present EOM: EOMs intact bilaterally Resp Effort & Inspection: normal respiratory effort Auscultation: clear to auscultation bilaterally Cardio Rate: regular rate Rhythm: regular rhythm Heart sounds: S1 normal heart sound present, S2 normal heart sound present, no gallops, no murmurs and no rubs GI Palpation (GI): No Abdominal aortic bruit present, Soft to palpation, nontender, No hepatosplenomegaly present and No Rebound tenderness present Auscultation: normal bowel sounds General: Yes no CVA tenderness Back/Spine/Pelvis Back: no CVA tenderness Cervical Spine: cervical ROM normal and No Cervical spine tenderness Thoracic/Lumbar Spine: thoraco-lumbar ROM normal, No pain with thoraco-lumbar ROM, No thoracic spinal tenderness and No lumbar spinal tenderness Extrem General: Yes normal to inspection, No edema and No calf tenderness Skin General: warm and dry. Normal skin color. Normal skin turgor Neuro General: patient oriented x3, gait normal and no focal neuro deficit Cranial nerves: Yes Equal, round and reactive pupils present Cognition (Neuro): normal cognition Gait exam (Neuro): Normal gait present Sensory Exam: No Sensory deficit (Neuro) Psych Appearance: grossly normal Affect: normal affect Attitude: cooperative Thought process: Normal thought process present Results AMB Hemoglobin A1c AMB Hemoglobin A1c 6.5 % Last Edit by Charisma Ratliff MA on 10/15/24 15:54 Coding Level of Care Code Est Pt Level 3 (76535) Diagnoses Hypertension I10 DM type 2 (diabetes mellitus, type 2) E11.9 Assessment & Plan Assessment & Plan (1) Hypertension: Code(s): I10 - Essential (primary) hypertension Category: Medical Plan: Resting blood pressure is 120/70, within goal of less than 130/80. Continue current treatment regimen. Low-sodium diet encouraged. Follow-up in 3 months or sooner with symptoms or concerns. Verbalized understanding and agreed with the plan. (2) DM type 2 (diabetes mellitus, type 2): Code(s): E11.9 - Type 2 diabetes mellitus without complications Category: Medical Plan: A1c today 6.5%, within goal of less than 7.0%. Previous A1c was 6.4%. Continue current treatment regimen. ADA diet and routine exercise encouraged. Recent LDL is 78, within goal of less than 100. Follow-up in 3 months. Verbalized understanding and agreed with the treatment plan. Orders: Orders AMB Hemoglobin A1c Today Z13.9 - Encounter for screening, unspecified
[2024-10-15 15:14] VITALS: BP 131/74; PULSE 86; RESP 16; TEMP 36.7; O2SAT 97; BMI 35.6
[2024-10-15 15:51] VITALS: BP 120/70
--- OUTSIDE RECORDS SUMMARY | 2024-10-15 16:24 | XMS_ITS | Clinical Summary ---
Author Organization [facility] ity Address [address] [place] [address] Care Team Providers Care Prosthetics Lab Technician Name Role Phone Unavailable Primary Care Provider Unavailabl e Social History Tobacco Use Types Packs/Day Years Used Date Smoking Tobacco: Every Day Cigarettes 0.5 12.5 Started: 04/04/2012 Smokeless Tobacco: Never Alcohol Use [...] ars (1 of 2 - PCV) 1988 Zoster Vaccines (1 of 2) 09/16/2019 COVID-19 Vaccine ( - 2023-2 5 season) 2023 Cholesterol Screening (Lipid Panel) 01/27/2024 Colorectal Cancer Screening: Colonoscopy 01/27/2024 Depression Screening 01/27/2024 Diabetes: Annual Urine Albumin-Creatinine Ratio (uACR) 01/27/2024 Diabetes: Blood Sugar Contro l Test (HGBA1C) 01/27/2024 HIV Screening 01/27/2024 Hepatitis C Screening 01/27/2024 Social Influencers of Health Screening 01/27/2024 Influenza Vaccine (#1) 2024 HIB Vaccines Aged Out No longer eligi [...] age to complete this topic Meningococcal B Vaccine Aged Out No l onger eligible based on patient's age to complete this topic RSV Immunization Patients Un josefa 20 months Aged Out No longer eligible b ased on patient's age to complete this topic Varicella Vaccines Aged Out No longer eligible based on patient's age to complete this topic
== END 2024-10-15 15:58 | disposition home or self-care (01) ==
LOC: HO.HMCFM 15:08
PROVIDERS: PCP Nurse Practitioner Family; Visit Provider Nurse Practitioner Family
DX: I10 Essential (primary) hypertension (principal); E11.9 Type 2 diabetes mellitus without complications; Z13.9 Encounter for screening, unspecified

== ENCOUNTER → 2024-10-15 15:07 | Outpatient (BNVA) | payer BC, SELFPAY | PROVIDERS: PCP Nurse Practitioner Family; Visit Provider Nurse Practitioner Family | DX: I10 Essential (primary) hypertension (principal); E11.9 Type 2 diabetes mellitus without complications | CPT/HCPCS: 83036 ==